=== PATIENT | female | born 1945 | race Caucasian/White ===

== ENCOUNTER 2020-05-08 02:43 | Emergency (ER) | payer MEDICARE ==
[2020-05-08] MEDS ORDERED: ALUM & MAG HYDROX-SIMETHICONE 30 ML, LIDOCAINE VISCOUS 2% 15 ML PO ONE ×2 (02:57)
--- NOTE | 2020-05-08 03:36 | RAD ---
EXAM: XR Abdomen, 2 Views and XR Chest, 1 View CLINICAL HISTORY: The patient is 74 years old and is Female; epigastric adn chest pain TECHNIQUE: Frontal view of the chest, frontal view of the abdomen/pelvis and upright or decubitus view of the abdomen. COMPARISON: No relevant prior studies available. FINDINGS: Lungs: Unremarkable. No consolidation. Pleural space: Unremarkable. No pneumothorax. Heart: Unremarkable. No cardiomegaly. Mediastinum: Unremarkable. Intraperitoneal space: No free air. Gastrointestinal tract: Unremarkable. No dilation. Bones/joints: Degenerative changes of the hips, right greater than left. IMPRESSION: Normal chest, abdomen and pelvis x-rays. Electronically signed by: Vikram Queen MD 05/08/2020 3:35 AM [facility]
[2020-05-08] MEDS ORDERED: MAGNESIUM HYDROXIDE 30 ML UD PO ONE (03:59)
[2020-05-08] MEDS ORDERED: ONDANSETRON ODT 8 MG TAB PO ONE (03:59)
[2020-05-08] MEDS ORDERED: ONDANSETRON ODT 8 MG TAB ONE (04:01)
[2020-05-08] MEDS ORDERED: MAGNESIUM HYDROXIDE 30 ML UD ONE (04:01)
[2020-05-08 04:15] VITALS: O2SAT 97
[2020-05-08] MEDS ORDERED: PROMETHAZINE HCL INJ 25 MG in SODIUM CHLORIDE 0.9% 50ML 50 ML IVPB ONE (04:26)
[2020-05-08] MEDS ORDERED: PANTOPRAZOLE SODIUM IV 40 MG VIAL IV ONE (04:26)
[2020-05-08] MEDS ORDERED: SUCRALFATE 1 GM/10 ML 1 GM UD PO ONE (04:26)
--- NOTE | 2020-05-08 04:29 | ED.PDOC ---
History of Present Illness - General Chief Complaint: Cardiovascular Problem Stated Complaint: epigastric pain, hx esophageal spasms Time Seen by Provider: 05/08/20 02:45 Source: patient Exam Limitations: no limitations - History of Present Illness Initial Comments: Patient is a 74-year-old female presented emergency room secondary to what she calls chest pain. About 5 hours prior to arrival she had a slow onset of this discomfort. It is described as a tight burning clamping sensation behind the upper sternum as well as a cramping sensation in epigastric area. The patient has apparently had a significant history of gastritis, reflux and esophageal spasms before. She reports that she has felt this with her last significant episode of esophageal spasm several years ago when she was at a high stress time in her life. The patient is very anxious. Blood pressures are elevated significantly initially. The patient does report that she takes a blood pressure medicine. She denies any coronary artery history pathology. No fevers. No vomiting. She has had some mild nausea. She is not apparently taking any GI medications currently. She does have a significant history of constipation and has had some increased constipation recently. The patient is from [place] of town. The patient refuses coronavirus testing. Initial GI cocktail did help for about 30 minutes. The patient does report that she does have a highly reactive blood pressure. Timing/Duration: constant, getting worse, other - 5 hours Severity: moderate Improving Factors: nothing Worsening Factors: nothing Associated Symptoms: chest pain, malaise, nausea/vomiting Allergies/Adverse Reactions: Allergies Codeine Allergy (Verified 05/08/20 02:53) Home Medications: Ambulatory Orders Losartan Potassium 50 mg PO DAILY 05/08/20 Review of Systems - Review of Systems Constitutional: States: no symptoms reported EENTM: States: no symptoms reported Respiratory: States: no symptoms reported Cardiology: States: chest pain Gastrointestinal/Abdominal: States: abdominal pain, constipation, nausea Genitourinary: States: no symptoms reported Musculoskeletal: States: no symptoms reported Skin: States: no symptoms reported Neurological: States: anxiety, depressed Endocrine: States: no symptoms reported All other Systems: No Change from Baseline Past Medical History (General) - Patient Medical History Hx Seizures: No Hx Stroke: No Hx Dementia: No Hx Asthma: No Hx of COPD: No Hx Cardiac Disorders: No Hx Congestive Heart Failure: No Hx Pacemaker: No Hx Hypertension: Yes Hx Thyroid Disease: No Hx Diabetes: No Hx Gastroesophageal Reflux: No Hx Renal Disease: No Hx Cancer: No Hx of HIV: No Hx Hepatitis C: No Hx MRSA: No Surgical History: Hysterectomy - Vaccination History Hx Tetanus, Diphtheria Vaccination: Yes - 3 years ago Hx Influenza Vaccination: No Hx Pneumococcal Vaccination: No - Social History Hx Tobacco Use: No Hx Alcohol Use: No Family Medical History - Family History Sister Living Status: Still Living Physical Exam - Physical Exam General Appearance: Alert, Anxious Eye Exam: bilateral normal Ears, Nose, Throat: hearing grossly normal, normal pharynx Neck: full range of motion, supple Respiratory: lungs clear, normal breath sounds, no respiratory distress, no accessory muscle use Cardiovascular/Chest: normal peripheral pulses, regular rate, rhythm, no edema Peripheral Pulses: radial,right: 2+, radial,left: 2+ Gastrointestinal/Abdominal: soft, other - Epigastric discomfort to palpation. No rebound or peritoneal signs. No significant palpable mass. Rectal Exam: deferred Back Exam: no CVA tenderness, no vertebral tenderness Extremity: normal range of motion, non-tender, normal inspection, no pedal edema, normal capillary refill Neurologic: nutrition associate II-XII nml as tested, alert, oriented x 3, other - See above Skin Exam: normal color Comments: Vital Signs - 24 hr 05/08/20 05/08/20 05/08/20 02:43 02:45 03:19 Temperature 98.5 F Pulse Rate [ 86 70 70 monitor] Respiratory 18 18 Rate Blood Pressure 208/90 188/95 [Right Arm] O2 Sat by Pulse 98 98 Oximetry 05/08/20 04:00 Temperature Pulse Rate [ 64 monitor] Respiratory 18 Rate Blood Pressure 190/92 [Right Arm] O2 Sat by Pulse 97 Oximetry Progress - Progress Progress: 05/08/20 04:34 The patient is a 74-year-old female presented emergency room secondary to epigastric and chest pain that is most likely at this point related to gastritis and esophagitis. The patient did have a positive response to a GI cocktail and has had a history of gastritis, esophagitis and esophageal spasm in the past. Initial EKG and cardiac enzymes are negative 5 hours after symptom onset. The patient will be receiving another set 3 hours after the first. Constipation does likely complicate the gastritis issue and the patient is receiving a dose of milk of magnesia. Additionally the patient is receiving a dose of Phenergan as much to help the patient relax as to help with nausea. The patient is very anxious and highly reluctant to stay for the work-up. She did refuse a coronavirus swab. Discomfort is about 70% better after the GI cocktail but is starting to come back. She will be receiving a dose of Carafate and Protonix as well. Blood pressures have remained up however the patient has remained extremely anxious. We will see what the blood pressures do after the Phenergan is on board. If blood pressures are remaining up and discomfort is remaining present, then we may give a trial of isosorbide or nifedipine to target any persistent esophageal spasm. Again, I believe at this point a car diac etiology is much less likely however we will do another set of enzymes to help make sure she is not having a heart attack. - Results/Orders Results/Orders: EKG shows normal sinus rhythm at 75 bpm. Right axis deviation. Right bundle branch block. Poor R wave progression. No ST segment or T wave changes indicative of acute ischemia. Normal QT interval. Mild left atrial dilation. Possible RVH pattern. Acute abdominal series appears benign. Moderate stool. Departure - Departure Clinical Impression: Constipation, Gastritis Disposition: Discharge to Home or Self Care Departure Forms: ED Discharge - Pt. Copy, Patient Portal Self Enrollment Diet: bland diet Activity: increase activity as tolerated Home Medications: Ambulatory Orders Losartan Potassium 50 mg PO DAILY 05/08/20
[2020-05-08] MEDS ORDERED: SODIUM CHLORIDE 0.9% (FLUSH) 10 ML SYG ONE (04:35)
[2020-05-08 06:57] VITALS: BP 173/85; TEMP 97.2
== END 2020-05-08 07:05 | disposition home or self-care (01) ==
LOC: ER 02:43
DX: K20.90 Esophagitis, unspecified without bleeding (principal); K59.01 Slow transit constipation; K29.00 Acute gastritis without bleeding; R07.2 Precordial pain; I45.10 Unspecified right bundle-branch block; I10 Essential (primary) hypertension; Z88.5 Allergy status to narcotic agent
CPT/HCPCS: 74019; 80053; 81001; 82150; 82550; 82553; 83690; 83880; 84484; 85014; 85018; 85025; 85379; 87086; 93005; A4216; J2550